=== PATIENT | female | born 1970 | race Caucasian/White ===

== ENCOUNTER → 2018-11-11 | Outpatient (CLI) | payer OTHER ==
[~2018-11-11] MED LIST: CLONAZEPAM 1 MG1 M1 PO; EFFEXOR XR150 MG PO; MANY VITAMINS; TRANSDERM-SCO1 PATC1 TD
--- NOTE | 2018-11-11 16:15 | 2DMMODE ---
[place] [address] 2 D/M-MODE ECHOCARDIOGRAM Name: DAIJA BARAHONA Room: [facility]#: [id number] Admission: 11/11/18 Attend Phys: Xander Hernandez Discharge: Date of : 74 Date of Service: 11/11/18 1614 Report #: [id number] THIS REPORT FOR: //name// APPROVED REPORT Study performed: 11/11/2018 15:08:48 EXAM: Comprehensive 2D, Doppler, and color-flow Echocardiogram Patient Location: Out-Patient BSA: 1.89 HR: 82 bpm BP: 120/70 mmHg Other Information Study Quality: Good Indications Abnormal ECG 2D Dimensions IVSd: 11.02 (7-11mm) LVOT Diam: 20.50 (18-24mm) LVDd: 45.49 mm PWd: 9.50 (7-11mm) Ascending Ao: 30.10 (22-36mm) LVDs: 29.82 (25-40mm) Aortic Root: 26.15 mm Volumes Left Atrial Volume (Systole) LA ESV Index: 14.10 mL/m2 Aortic Valve AoV Peak Lazaro.: 1.08 m/s AO Peak Gr.: 4.63 mmHg LVOT Max P.14 mmHg AO Mean Gr.: 2.49 mmHg LVOT Mean P.64 mmHg LVOT Max V: 0.89 m/s AO V2 VTI: 19.60 cm LVOT Mean V: 0.60 m/s PAULINE (VTI): 3.28 cm2 LVOT V1 VTI: 19.47 cm Mitral Valve E/A Ratio: 0.80 MV Decel. Time: 221.70 ms MV E Max Lazaro.: 0.47 m/s MV PHT: 64.29 ms MVA (PHT): 3.42 [place]2 [place] [address] 2 D/M-MODE ECHOCARDIOGRAM Name: DAIJA BARAHONA Room: [facility]#: [id number] Admission: 11/11/18 Attend Phys: Xander Hernandez Discharge: Date of : 74 Date of Service: 11/11/18 1614 Report #: [id number] TDI E/Lateral E': 4.70 E/Medial E': 5.22 Medial E' Lazaro.: 0.09 m/s Lateral E' Lazaro.: 0.10 m/s Pulmonary Valve PV Peak Lazaro.: 0.71 m/s PV Peak Gr.: 2.03 mmHg Tricuspid Valve RAP Estimate: 5.00 mmHg TR Peak Gr.: 14.26 mmHg RVSP: 19.26 mmHg PA Pressure: 19.26 mmHg Left Ventricle The left ventricle is normal size. There is normal LV segmental wall motion. There is normal left ventricular wall thickness. Left ventricular systolic function is normal. LVEF is 60-65%. Transmitral Doppler flow pattern suggests impaired LV relaxation. Right Ventricle The right ventricle is normal size. The right ventricular systolic function is normal. Atria The left atrium size is normal. The right atrium size is normal. Aortic Valve The aortic valve is normal in structure. No aortic regurgitation is present. There is no aortic valvular stenosis. Mitral Valve The mitral valve is normal in structure. There is no mitral valve regurgitation noted. No evidence of mitral valve stenosis. Tricuspid Valve The tricuspid valve is normal in structure. Trace tricuspid regurgitation. Pulmonic Valve The pulmonary valve is normal in structure. Mild pulmonic regurgitation. Great Vessels The aortic root is normal in size. IVC [place] [address] 2 D/M-MODE ECHOCARDIOGRAM Name: DAIJA BARAHONA Room: [facility]#: [id number] Admission: 11/11/18 Attend Phys: Xander Hernandez Discharge: Date of : 74 Date of Service: 11/11/18 1614 Report #: [id number] collapses >50% with inspiration. Pericardium There is no pericardial effusion. <Conclusion> The left ventricle is normal size. There is normal left ventricular wall thickness. Left ventricular systolic function is normal. LVEF is 60-65%. Transmitral Doppler flow pattern suggests impaired LV relaxation. IVC is normal in size and collapses >50% with inspiration. <ELECTRONICALLY SIGNED> By: Artis Lock MD, FACC 11/11/18 1614 161 161 Artis Lock MD, FACC /INF
== END ==
LOC: M.CRD 14:57
DX: I35.8 Other nonrheumatic aortic valve disorders (principal); R94.31 Abnormal electrocardiogram [ECG] [EKG]; I37.1 Nonrheumatic pulmonary valve insufficiency

== ENCOUNTER 2019-09-25 12:48 | Emergency (ER) | payer OTHER ==
[~2019-09-25] VITALS: Ht 160 cm; Wt 86.2 kg
[2019-09-25] MEDS ORDERED: ESTRACE0.5 MG PO (13:09)
[2019-09-25 13:45] LABS: ABSOLUTE BASOPHILS 0.1 thou/uL (0.0-0.2); ABSOLUTE LYMPHOCYTES 1.7 thou/uL (0.8-5.3); ABSOLUTE MONOCYTES 0.5 thou/uL (0.0-1.2); ABSOLUTE NEUTROPHILS 5.9 thou/uL (1.6-8.1); BASOPHILS 1.1 %; EOSINOPHILS 0.4 %; HEMATOCRIT 42.7 % (37.0-47.0); HEMOGLOBIN 14.3 gm/dL (12.0-15.0); LYMPHOCYTES 20.8 %; MCH 28.7 pg (26.0-34.0); MCHC 33.5 g/dL (28.0-37.0); MCV 85.8 fL (80.0-100.0); MONOCYTES 5.6 %; MPV 8.4 fl. (7.2-11.1); NUCLEATED RBCS 0 /100WBC; PLATELET COUNT* 288 thou/uL (150-400); POLYS 72.1 %; RBC 4.98 mil/uL (4.20-5.00); RDW-CV 13.5 % (10.5-14.5); WBC 8.2 thou/uL (4.0-11.0)
[2019-09-25 13:49] LABS: URINE BILIRUBIN NEGATIVE (Negative); URINE BLOOD TRACE (Negative); URINE CLARITY CLOUDY; URINE COLOR YELLOW; URINE GLUCOSE-RANDOM NEGATIVE (Negative); URINE KETONES TRACE (Negative); URINE LEUKOCYTES-REFLEX NEGATIVE (Negative); URINE NITRITE-REFLEX NEGATIVE (Negative); URINE PROTEIN NEGATIVE (Negative); URINE UROBILINOGEN 0.2 E.U./dl (0.2-1.0)
[2019-09-25 13:55] LABS: SQUAMOUS >10 Many /LPF (0-3)
[2019-09-25 13:56] LABS: BACTERIA-REFLEX >30 Many /HPF (None Seen); CRYSTALS None Seen /LPF (None Seen); HYALINE CASTS 4-10 Moderate /LPF (None Seen); MUCUS 4-6 Moderate strn/LPF (None Seen); URINE RBC 0-2 Rare /HPF (0-2); URINE WBC-REFLEX 0-5 Rare /HPF (0-5)
[2019-09-25 14:05] LABS: CALCIUM 8.5 mg/dL (8.5-10.1); POTASSIUM 3.4 mmol/L (3.5-5.1)
[2019-09-25 14:09] LABS: ALBUMIN 3.8 g/dL (3.4-5.0); TOTAL BILIRUBIN 0.6 mg/dL (<0.1-1.0); TOTAL PROTEIN 7.7 g/dL (6.4-8.2)
[2019-09-25] MEDS ORDERED: NORCO 5-325 TA1 EAC1 PO (14:44)
[2019-09-25] MEDS ORDERED: BENTYL 20 MG TA20 M1 PO (14:44)
[2019-09-25] MEDS ORDERED: ZOFRAN ODT4 MG DISSOLVE (14:44)
[2019-09-25 14:53] VITALS: BP 139/87
--- NOTE | 2019-09-25 16:20 | EKG ---
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: : 1970 Requested By: James Cadena Order Number: [id number] MD: Jesse Finnegan Measurements Intervals [place] Rate: 78 P: 43 [place]: 172 QRS: 1 QRSD: 96 T: 4 QT: 371 QTc: 423 Interpretive Statements Sinus rhythm Ventricular premature complex Inferior infarct, old Compared to ECG 11/05/2018 16:42:28 Ventricular premature complex(es) now present Myocardial infarct finding still present Electronically Signed On 09-25-2019 16:19:45 ALARM TECHNICIAN by Jesse Finnegan [email or web address] <ELECTRONICALLY SIGNED> By: Jesse Finnegan MD, [facility] 09/25/19 1619 134 43 Jesse Finnegan MD, FAC /EPI
== END 2019-09-25 14:58 | disposition home or self-care (01) ==
LOC: M.ERS 12:48
PROVIDERS: Emergency Medicine Emergency Medical Services
DX: R10.11 Right upper quadrant pain (principal); R19.7 Diarrhea, unspecified; Z90.710 Acquired absence of both cervix and uterus; Z90.49 Acquired absence of other specified parts of digestive tract; N80.9 Endometriosis, unspecified

== ENCOUNTER 2019-09-27 17:19 | Emergency (ER) | payer OTHER ==
[~2019-09-27] VITALS: Ht 160 cm; Wt 88.5 kg
[~2019-09-27 17:19] MED LIST changes: +BENTYL 20 MG TA20 M1 PO; +ESTRACE0.5 MG PO; +NORCO 5-325 TA1 EAC1 PO; +ZOFRAN ODT4 MG DISSOLVE
[2019-09-27 17:56] LABS: URINE BILIRUBIN NEGATIVE (Negative); URINE BLOOD 1+ (Negative); URINE CLARITY SL CLOUDY; URINE COLOR YELLOW; URINE GLUCOSE-RANDOM NEGATIVE (Negative); URINE KETONES 2+ (Negative); URINE LEUKOCYTES-REFLEX NEGATIVE (Negative); URINE NITRITE-REFLEX NEGATIVE (Negative); URINE PROTEIN NEGATIVE (Negative); URINE UROBILINOGEN 0.2 E.U./dl (0.2-1.0)
[2019-09-27 17:56] LABS: ABSOLUTE BASOPHILS 0.1 thou/uL (0.0-0.2); ABSOLUTE EOSINOPHILS 0.1 thou/uL (0.0-0.7); ABSOLUTE LYMPHOCYTES 2.2 thou/uL (0.8-5.3); ABSOLUTE MONOCYTES 0.4 thou/uL (0.0-1.2); ABSOLUTE NEUTROPHILS 3.3 thou/uL (1.6-8.1); BASOPHILS 1.3 %; HEMATOCRIT 42.9 % (37.0-47.0); HEMOGLOBIN 14.5 gm/dL (12.0-15.0); LYMPHOCYTES 36.1 %; MCH 28.6 pg (26.0-34.0); MCHC 33.7 g/dL (28.0-37.0); MCV 84.8 fL (80.0-100.0); NUCLEATED RBCS 0 /100WBC; PLATELET COUNT* 296 thou/uL (150-400); POLYS 54.6 %; RBC 5.05 mil/uL (4.20-5.00); RDW-CV 13.5 % (10.5-14.5)
[2019-09-27 18:02] LABS: SQUAMOUS >10 Many /LPF (0-3)
[2019-09-27 18:03] LABS: URINE WBC-REFLEX 0-5 Rare /HPF (0-5)
[2019-09-27 18:04] LABS: BACTERIA-REFLEX >30 Many /HPF (None Seen); CASTS None Seen /LPF (None Seen); CRYSTALS None Seen /LPF (None Seen); MUCUS 4-6 Moderate strn/LPF (None Seen); URINE RBC 3-10 Few /HPF (0-2)
[2019-09-27 18:05] LABS: CALCIUM 8.4 mg/dL (8.5-10.1); CREATININE 0.9 mg/dL (0.6-1.3); POTASSIUM 3.3 mmol/L (3.5-5.1)
[2019-09-27 18:10] LABS: APTT 27.5 Seconds (25.0-31.3); PROTIME 10.1 Seconds (9.20-11.50)
[2019-09-27 18:16] LABS: ALBUMIN 3.7 g/dL (3.4-5.0); TOTAL BILIRUBIN 0.4 mg/dL (<0.1-1.0); TOTAL PROTEIN 7.4 g/dL (6.4-8.2)
[2019-09-27] MEDS ORDERED: PHENERGAN 25 MG25 M1 PO (18:43)
[2019-09-27] MEDS ORDERED: PROMS25 WY RECTAL (18:43)
[2019-09-27 19:02] VITALS: BP 145/92
--- NOTE | 2019-09-28 17:07 | EKG ---
[place] [address] ELECTROCARDIOGRAM REPORT Name: DAIJA BARAHONA Room: [facility]#: [id number] Admission: 09/27/19 Attend Phys: Discharge: 09/27/19 Date of : 74 Report #: [id number] THIS REPORT FOR: //name// [facility] ED Test Date: 2019-09-27 Test Time: 17:37:22 Pat Name: DAIJA BARAHONA Department: Room: Gender: F Admissions Coordinator: [facility] : 1970 Requested By: Ivania Fuller Order Number: [id number] MD: Artis Lock Measurements Intervals [place] Rate: 66 P: 51 [place]: 169 QRS: 22 QRSD: 82 T: 4 QT: 462 QTc: 485 Interpretive Statements Sinus rhythm Ventricular premature complex Inferior infarct, old, possible Baseline wander in lead(s) II Compared to ECG 09/25/2019 13:44:07 No significant changes Electronically Signed On 09-28-2019 17:06:47 CHIEF ENGINEER by Artis Lock [email or web address] <ELECTRONICALLY SIGNED> By: Artis Lock MD, [facility] 09/28/19 1706 1737 173 Artis Lock MD, [facility] /EPI
== END 2019-09-27 19:03 | disposition home or self-care (01) ==
LOC: M.ERS 17:19
PROVIDERS: Nurse Practitioner Family
DX: K52.9 Noninfective gastroenteritis and colitis, unspecified (principal); N80.9 Endometriosis, unspecified; Z90.710 Acquired absence of both cervix and uterus; Z90.49 Acquired absence of other specified parts of digestive tract; Z88.8 Allergy status to other drugs, medicaments and biological substances